=== PATIENT | male | born 1990 | race Caucasian/White ===

== ENCOUNTER 2025-05-14 19:21 | Observation (INO) | payer OTHER, SELFPAY ==
[2025-05-14 13:28] VITALS: BP 166/112
[2025-05-14 13:47] LABS: Hematocrit 44.6 % (39.0-52.0); Hemoglobin 16.1 g/dL (13.0-18.0); Mean Corp Hgb Conc. 36.1 g/dL (33.0-37.0); Mean Corpuscular Volume 81.7 fL (80.0-94.0); Nucleated Red Blood Cells % 0 % (-); Platelet Count 170 10^3/uL (130-400); Red Cell Dist. Width 12.9 % (11.5-14.5)
[2025-05-14 13:53] LABS: Urine Character Clear (Clear)
[2025-05-14 13:54] LABS: Urine Red Blood Cell 0-2 /HPF (0-2); Urine Squamous Cell 0-2 /LPF (Few); Urine White Cell 0-2 /HPF (0-5)
[2025-05-14 14:05] LABS: ALT (SGPT) 28 U/L (0-50); AST (SGOT) 22 U/L (17-59); Albumin 5.0 g/dl (3.5-5.0); Alkaline Phosphatase 60 U/L (38-126); Blood Urea Nitrogen 11 mg/dl (9-20); Calcium 9.6 mg/dl (8.4-10.2); Carbon Dioxide 26 mmol/L (22-30); Chloride 101 mmol/L (98-107); Glucose 96 mg/dl (70-99); Potassium 4.5 mmol/L (3.5-5.1); Sodium 138 mmol/L (135-145); Total Protein 7.8 g/dl (6.3-8.2); eGFR > 60.00
--- NOTE | 2025-05-14 16:23 | ED.GENMED ---
History of Present Illness
General
Chief Complaint: Flank Pain
Source: patient and spouse
Time Seen by Provider: 05/14/25 15:47
History of Present Illness
History of Present Illness:
This patient is a 34-year-old male who presents emergency department complaints of pain is started approximately 2 PM yesterday, described as gradual in onset, but constant, and worse with movement as opposed to laying still. He denies associated
chills but thinks he may have a fever here. He denies vomiting but notes nausea and loss of appetite. He denies chest pain, shortness of breath, pain with urination, hematuria, urgency, frequency. He does note that he thinks he is urinating less
than usual. The pain is located across his lower abdomen but then sometimes will radiate to the right flank area. Patient has never had this before.
Patient went to an urgent care before arriving here, had labs, urine, and x-ray was referred to the ER given concern on the part of the provider for kidney stones.
Past History
Past History
ED Past Medical History: None
ED Past Surgical History: None
Social History
Tobacco: Non-smoker
Drug: None
Personal:
Living: with family
Employment: Employed
Phy Exam
Physical Exam
Physical Exam:
GENERAL: Alert , appears mildly uncomfortable
EYE: pupils equal and reactive
NECK: Supple, no significant adenopathy.
ENT: o/p clr, mmm.
CARDIAC: Regular rate and rhythm .
LUNGS: Clear breath sounds bilaterally, no acute respiratory distress, no wheezes/rales/rhonchi
ABDOMEN: Soft, diffuse lower abdominal tenderness, no r/g, no cvat
NEUROLOGICAL: Alert and oriented, no focal neuro deficits
SKIN: Warm and dry, skin intact.
MUSCULOSKELETAL: No edema, well perfused.
PSYCH: Normal and appropriate interaction.
Course
Orders/Labs/Results
Orders:
Orders
05/14/25 13:38
Urinalysis Reflex To Culture Urgent
Date Specimen was Collected: 05/14/25
Time Specimen was Collected: 13:31
Urine Microscopic Reflex Cult Urgent
05/14/25 13:39
Complete Blood Count/With Diff Urgent
Comprehensive Metabolic Panel Urgent
05/14/25 16:23
CT Abd/Pel (IV only)-DH only Urgent
Comment:
Reason For Exam: lower abd pain
Morphine Sulfate 4 mg IV NOW STA
05/14/25 17:25
Acetaminophen [Tylenol] 1,000 mg .ROUTE .STK-MED ONE
05/14/25 17:27
Acetaminophen [Tylenol] 1,000 mg PO NOW STA
05/14/25 17:53
Morphine Sulfate 4 mg .ROUTE .STK-MED ONE
05/14/25 17:55
Morphine Sulfate 4 mg IV NOW STA
05/14/25 18:11
0.9% Sodium Chloride 1000 ml [Nss] 1,000 ml IV BOLUS
LevoFLOXacin 500 MG/100 ML [Levaquin] 500 mg in 100 ml IV NOW
MetroNIDAZOLE 500 MG/100 ML [Flagyl 500 mg] 100 ml IV NOW
Abnormal Lab Results
05/14/25 05/14/25
13:38 13:39
Absolute Neuts (auto) 8.3 H 10^3/uL
(1.4-6.5)
Absolute Lymphs (auto) 1.0 L 10^3/uL
(1.2-3.4)
Absolute Monos (auto) 0.8 H 10^3/uL
(0.1-0.6)
Neutrophils % 81.3 H %
(42.2-75.2)
Lymphocytes % 9.8 L %
(20.5-51.1)
Total Bilirubin 2.2 H mg/dl
(0.2-1.3)
Urine Ketones 3+ A
(Negative)
Urine Bacteria (Reflex) Few A
(Negative)
Urine Albumin (Reflex) 1+ A
(Neg - Trace)
05/14/25 13:39
05/14/25 13:39
Vital Signs
Initial and Last Documented VS:
Initial Vital Signs
Temp Pulse Resp BP Pulse Ox
97.9 F 100 16 166/112 98
05/14/25 13:28 05/14/25 13:28 05/14/25 13:28 05/14/25 13:28 05/14/25 13:28
Last Documented Vital Signs
Temp Pulse Resp BP Pulse Ox
101.9 F H 100 16 166/112 98
05/14/25 17:22 05/14/25 13:28 05/14/25 13:28 05/14/25 13:28 05/14/25 16:23
*Pulse Oximetry
SaO2: 98
Oxygen Mode of Delivery: Room air
Patient hypoxic: no
*Critical Care Note
Total Time (30-74mins, 75-104mins- exclusive of procedures): Not Applicable
Update Note
Update Note:
Patient presents to the Emergency Department with _abdominal pain
Number and Complexity of Problems Addressed at the Encounter
� Chronic conditions affecting care:
� Acute Exacerbation and/or Progression of Chronic Illness:
� Differential Diagnosis includes: But not limited to diverticulitis, appendicitis, bowel obstruction, kidney stone, urinary retention, etc. etc.
Amount and/or Complexity of Data to be Reviewed and Analyzed
� I performed an independent evaluation of and my interpretation is:
EKG:
CT:Findings of acute diverticulitis along the proximal sigmoid colon. There is no evidence of pericolonic abscess or perforation. There is small volume free fluid in the pelvis which is likely reactive.
Xrays:
Laboratory Studies: Ketonuria, generally otherwise unremarkable
Other:
� Review of other/old records reveals:
� Clinical information was obtained by an independent historian: who is bedside
� Prescriptions/Medications Considered but not given:
� Further testing considered but not performed:
Risk of Complications and/or Morbidity or Mortality of Patient Management
� Social determinants of health affecting care:
� Discussion with other providers (PCP, Hospitalists, Consultants, etc):
� Escalation of care including admission/observation vs risk of discharge considered: Patient's pain has been requiring IV meds here, and now has developed a fever. Although no abscess or perforation noted, I am impressed with
patient's level of pain and recommend overnight observation with IV antibiotics. Hospitalist made aware
ED Attending Note
-
Portions of this chart may have been created with voice recognition software.� Occasional wrong word or��sound alike� substitutions may have occurred due to the inherent limitations of voice recognition software.
Discharge Plan
Departure
Patient Disposition: Admit
Date of Disposition: 05/14/25
Time of Disposition: 18:24
Admit to: Med/Surg
Presentation/result/management discussed w/ accepting MD/DO: Hospitalist
Condition: Good
Discharge Problem:
Diverticulitis
Prescriptions:
No Action
ibuprofen [Advil] 200 mg Tablet
600 mg PO Q6HPRN PRN (Reason: mild pain)
Referrals:
NONE,* [Family Provider, Internal Medicine]
Interventions
Interventions:
*Risk Screen - Suicide Last Done: 05/14/25 13:28
*Neglect/Abuse Screening Last Done: 05/14/25 13:28
EH-Cjydrh-Kwswomrvxh Assessment Last Done: 05/14/25 15:45
ED-Male Genitourinary Assessment Last Done: 05/14/25 15:45
Discharge Date and Time
Print Language: SWISS
[2025-05-14] MEDS: MORPHINE SULFATE 4 MG IV ×2 (16:39→17:56)
[2025-05-14] MEDS: TYLENOL 1000 MG PO (17:27)
[2025-05-14] MEDS: LEVAQUIN 100 IV (18:19)
[2025-05-14] MEDS: NSS 1000 IV ×2 (18:21→20:29)
[2025-05-14] MEDS: FLAGYL 500 MG 100 IV (18:21)
--- NOTE | 2025-05-14 18:34 | HPS.HSE ---
Family Physician
-
Family Physician: * NONE
Chief Complaint
-
abdominal pain
History of Present Illness
Patient is a 34-year-old male with no significant past medical history who presented to [facility] ED for evaluation of abdominal pain. Patient reports that he started with lower abdominal pain yesterday afternoon that gradually intensified. He reports
associated mild nausea and decreased appetite. He also reports diarrhea yesterday. He reports pain was worse with movement and improved when lying still. He denies any fever, chills, cough, chest pain, vomiting, constipation or urinary symptoms.
Medical History
Past Medical History
Past Medical History: Reports None
Past Surgical History: Reports None
Social History
Tobacco: Non-smoker
Alcohol: Occasional
Drug: Marijuana (occasionally will use edibles )
Personal:
Living: With Family
Employment: Employed
Family History
Family History: Other (Father: CAD; Sister: CAD )
Allergies / Home Medications
Allergies reflects when Allergies were last updated in [facility].
Home Medications with original date entered in [facility]
Allergy/Medication List:
Allergies
Allergy/AdvReac Type Severity Reaction Status Date / Time
No Known Allergies Allergy Verified 05/14/25 13:30
Home Medications
ibuprofen 200 mg tablet (Advil) 600 mg PO Q6HPRN PRN mild pain 05/14/25
Review of Systems
-
History Source: Patient
Constitutional: Reports No Symptoms
EENT: Reports No Symptoms
Respiratory: Reports No Symptoms
Cardiac: Reports No Symptoms
Abdomen/GI: Reports Abdominal Pain, Nausea, Diarrhea and Anorexia
: Reports No Symptoms
Musculoskeletal: Reports No Symptoms
Skin: Reports No Symptoms
Neurological: Reports No Symptoms
Endocrine: Reports No Symptoms
Hematologic/Lymphatic: Reports No Symptoms
Psych: Reports No Symptoms
Physical Exam
Vital Signs
Vital Signs
Temp Pulse Resp BP Pulse Ox
101.9 F H 100 16 166/112 98
05/14/25 17:22 05/14/25 13:28 05/14/25 13:28 05/14/25 13:28 05/14/25 16:23
Physical Exam
General: Well Developed, Well Nourished, No Apparent Distress and Obese
HEENT: NormoCephalic, Moist mucous membranes and Atraumatic
Respiratory: Clear and Non Labored Respirations
Cardiac: S1/S2 and Regular Rhythm
GI: Soft and Tender
Rectal: Deferred by Provider
Musculoskeletal: No Clubbing, No Cyanosis and No Edema
Skin: Warm and IV/Catheter Site
Neuro: Awake, AO x 3 and Nonfocal/grossly intact
Psych: Calm and Intact Judgment/Insight
Laboratory Results
-
05/14/25 13:39
05/14/25 13:39
Laboratory Results
Total Bilirubin 2.2 mg/dl (0.2-1.3) H 05/14/25 13:39
AST 22 U/L (17-59) 05/14/25 13:39
ALT 28 U/L (0-50) 05/14/25 13:39
Alkaline Phosphatase 60 U/L (38-126) 05/14/25 13:39
Data Reviewed
-
CT Scan: Report Reviewed by me (Abd/Pel: Findings of acute diverticulitis along the proximal sigmoid colon. There is no evidence of pericolonic abscess or perforation. There is small volume free fluid in the pelvis which is likely reactive.)
Lab Data: Labs Reviewed by me
Impression/Plan
-
IMPRESSION/PLAN:
#diverticulitis
Abd/Pel CT: Findings of acute diverticulitis along the proximal sigmoid colon. There is no evidence of pericolonic abscess or perforation. There is small volume free fluid in the pelvis which is likely reactive.
- Admit to med/surg
- NPO advance to clears in AM
- IV Flagyl and Ceftriaxone
- pain regimen
- antiemetics
Code status: full code
DV prophylaxis: lovenox sq
[2025-05-14 19:03] VITALS: BP 132/69
--- NOTE | 2025-05-14 19:06 | W.PN.UPDATE ---
Update Note
Progress Note Update
Patient seen and conjunction with SHARLENE. I agree with findings on history and physical. I concur with assessment and plan.
Briefly, this is a 34-year-old with no known significant past medical history who presents to the emergency department with left-sided lower abdominal and flank pain that started at around 2 PM yesterday. Patient reported that he was not doing
anything in particular when he noticed some nausea and an episode of watery diarrhea then developed abdominal pain. Was unable to tolerate p.o. since 4 PM yesterday. He reported having chills at home but no measured fevers. He denied any
vomiting. He continued to have nausea and lack of p.o. intake with worsening left lower quadrant and flank pain. He denies any urinary symptoms. He denies any recent travels, sick contacts, antibiotic use. He denies any history of kidney stones.
He denies any history of any surgeries.
In the emergency department patient was febrile to one 1.9, blood pressure was in the 160s over 100 with a pulse rate of 100 and was satting 98% on room air. His CBC was completely normal. Electrolytes BUN/creatinine were normal. Total bilirubin
was elevated at 2.2 however the rest of the LFTs were normal. UA was unremarkable. CT of the abdomen pelvis shows acute diverticulitis along the proximal sigmoid colon. No evidence of pericolonic abscess or perforation. There is a small volume
free fluid in the pelvis which is thought to be reactive.
Assessment and plan
1 acute diverticulitis�noncomplicated acute diverticulitis with inability to tolerate p.o. and fevers. Patient is otherwise nontoxic-appearing
� Admit to MedSurg observation
� N.p.o. for now, advance to clear diet in a.m.
� Continue IV fluids
� Continue pain control and antiemetics
� Agree with IV ceftriaxone and Flagyl
DVT prophylaxis -Lovenox subcu
Full code
[2025-05-14 20:23] VITALS: BP 147/90
--- NOTE | 2025-05-14 20:23 | PTCARENOTE ---
Pt arrived onto floor @2022. Pt AAOx3 and able to ambulate into room without assistance. Pt with no complaints of SOB at this time. Pt oriented to room and call hernandes; will continue to monitor
[2025-05-14 20:25] VITALS: BMI 34.2
[2025-05-14] MEDS: MORPHINE SULFATE 2 MG IV (20:25)
[2025-05-14] MEDS: ROCEPHIN 1000 MG IV (20:33)
[2025-05-14] MEDS: STERILE WATER FOR INJECTION 10 ML IV (20:33)
[2025-05-14 23:42] VITALS: BP 110/66
[2025-05-15] MEDS: FLAGYL 500 MG 100 IV ×3 (06:12→21:32)
[2025-05-15] MEDS: NSS 1000 IV (06:13)
[2025-05-15 07:00] VITALS: BP 137/84
--- NOTE | 2025-05-15 10:44 | W.PN.HOSP.TC ---
Today's Communication/Plan
-
clears
IV Ceftriaxone/Flagyl
Assessment / Plan
Assessment / Plan
CT A/P
IMPRESSION:
Findings of acute diverticulitis along the proximal sigmoid colon. There is no evidence of pericolonic abscess or perforation. There is small volume free fluid in the pelvis which is likely reactive.
Acute Diverticulitis
Sepsis 2/2 above
� Admitted to [facility] observation
� CLD
� Continue IV fluids
� Continue pain control and antiemetics
� Agree with IV ceftriaxone and Flagyl (increase to Q8H)
- patient will need referral to GI post discharge for colonoscopy
DVT prophylaxis -Lovenox subcu
Full code
Anticipated Discharge: 24 - 48 hours
Subjective/Interval History
-
Date of Service: May 15, 2025
feeling slightly better
continues to have pain
no fevers since ER
no hx diverticulitis, never had colonoscopy before
Objective Data
-
Vital Signs:
Vital Signs
Temp Pulse Resp BP Pulse Ox
99.9 F 92 16 137/84 98
05/15/25 07:00 05/15/25 07:00 05/15/25 07:00 05/15/25 07:00 05/15/25 08:00
I&O
05/14/25 05/15/25 05/16/25
06:59 06:59 06:59
Output Total 1000 / 1000
Balance -1000 / -1000
Review of Systems
-
History Source: Patient
All other systems: Reviewed and negative
Physical Exam
-
General: No Apparent Distress
HEENT: PERRLA
Respiratory: Clear to Auscultation; Negative Wheezes
Cardiac: Regular Rhythm and S1/S2
GI: Soft and Nontender
Musculoskeletal: No Edema
Skin: Warm and Dry; Negative Rash
Neuro: AO x 3
Psych: Calm
Data Reviewed
-
Diagnostic Radiology: Report Reviewed by me
Labs: Labs Reviewed by me
--- NOTE | 2025-05-15 14:47 | CM ---
Addendum entered by Mago Guerrero 05/15/25 14:52:
Patient admitted obs. OOBS form verbally reviewed, copy provided, copy on chart
Original Note:
Patient seen bedside, initial assessment completed. Patient is a 34-year-old male with no significant past medical history who presented to [facility] ED for evaluation of abdominal pain. IV abx.
Patient resides w/ spouse and her 2 kids in a 2[address], 2 steps to enter from the outside. Patient is independent in all areas. No therapy hx. No equipment.
Address, points of contact and insurance verified
PCP: Patient does not have a PCP at this time
Pharmacy: [facility]- [place]
Patient receptive residency clinic. Info provided
Plan: Home, no needs when stable
[2025-05-15 15:00] VITALS: BP 126/76
[2025-05-15] MEDS: MORPHINE SULFATE 2 MG IV ×2 (15:58→19:58)
[2025-05-15] MEDS: STERILE WATER FOR INJECTION 10 ML IV (21:33)
[2025-05-15] MEDS: ROCEPHIN 1000 MG IV (21:33)
[2025-05-15 23:22] VITALS: BP 125/71
[2025-05-16] MEDS: FLAGYL 500 MG 100 IV ×3 (05:06→21:21)
[2025-05-16 08:00] VITALS: BP 122/78
[2025-05-16 08:07] LABS: Hematocrit 38.0 % (39.0-52.0); Hemoglobin 13.7 g/dL (13.0-18.0); Mean Corp Hgb Conc. 36.1 g/dL (33.0-37.0); Mean Corpuscular Volume 82.4 fL (80.0-94.0); Nucleated Red Blood Cells % 0 % (-); Platelet Count 149 10^3/uL (130-400); Red Cell Dist. Width 12.5 % (11.5-14.5)
[2025-05-16 08:34] LABS: Blood Urea Nitrogen 8 mg/dl (9-20); Calcium 8.5 mg/dl (8.4-10.2); Carbon Dioxide 25 mmol/L (22-30); Chloride 104 mmol/L (98-107); Estimated Creatinine Clearance > 125 ml/min; Glucose 89 mg/dl (70-99); Magnesium 1.9 mg/dl (1.6-2.3); Potassium 3.8 mmol/L (3.5-5.1); Sodium 138 mmol/L (135-145); eGFR > 60.00
--- NOTE | 2025-05-16 11:47 | CM ---
Addendum entered by Mago Guerrero 05/16/25 15:13:
Update from nurse- per hospitalist, will keep until tomorrow
Original Note:
Per nurse, patient will likely d/c home today
No CM needs at this time
Plan: Home, no needs
--- NOTE | 2025-05-16 12:24 | W.PN.HOSP.TC ---
Today's Communication/Plan
-
see plan
Assessment / Plan
Assessment / Plan
CT A/P
IMPRESSION:
Findings of acute diverticulitis along the proximal sigmoid colon. There is no evidence of pericolonic abscess or perforation. There is small volume free fluid in the pelvis which is likely reactive.
Acute Diverticulitis
Sepsis 2/2 above
� Admitted to [facility] observation
- s/p IVF
� Continue pain control and antiemetics
� continue IV ceftriaxone and Flagyl (increase to Q8H) (day 11/15)
-possible DC today if tolerates LRD
- patient will need referral to GI post discharge for colonoscopy
DVT prophylaxis -Lovenox subcu
Full code
Anticipated Discharge: Within 24 hours
Subjective/Interval History
-
Date of Service: May 16, 2025
overall feeling better
has some bloating
wants to try regular diet
no nausea/vomiting, no pain meds since last night
Objective Data
-
Labs:
Laboratory Results
05/16/25
07:24
WBC 4.8
Hgb 13.7
Hct 38.0 L
Plt Count 149
Sodium 138
Potassium 3.8
Chloride 104
Carbon Dioxide 25
BUN 8 L
Creatinine 0.7
Glucose 89
Calcium 8.5
Vital Signs:
Vital Signs
Temp Pulse Resp BP Pulse Ox
98.1 F 73 16 122/78 97
05/16/25 08:00 05/16/25 08:00 05/16/25 08:00 05/16/25 08:00 05/16/25 08:00
I&O
05/15/25 05/16/25 05/17/25
06:59 06:59 06:59
Intake Total 1120 / 1120
Output Total 1000 / 999
Balance -1000 / -1000 1119
Review of Systems
-
History Source: Patient
All other systems: Reviewed and negative
Physical Exam
-
General: No Apparent Distress
HEENT: PERRLA
Respiratory: Clear to Auscultation; Negative Wheezes
Cardiac: Regular Rhythm and S1/S2
GI: Soft and Nontender
Musculoskeletal: No Edema
Skin: Warm and Dry; Negative Rash
Neuro: AO x 3
Psych: Calm
Data Reviewed
-
Diagnostic Radiology: Report Reviewed by me
Labs: Labs Reviewed by me
[2025-05-16 16:00] VITALS: BP 111/59
[2025-05-16] MEDS: STERILE WATER FOR INJECTION 10 ML IV (21:21)
[2025-05-16] MEDS: ROCEPHIN 1000 MG IV (21:21)
[2025-05-16 23:01] VITALS: BP 112/69
[2025-05-17] MEDS: FLAGYL 500 MG 100 IV (05:28)
[2025-05-17 07:00] VITALS: BP 118/71
--- NOTE | 2025-05-17 09:25 | W.PN.HOSP.TC ---
Today's Communication/Plan
-
OK for DC today
Assessment / Plan
Assessment / Plan
CT A/P
IMPRESSION:
Findings of acute diverticulitis along the proximal sigmoid colon. There is no evidence of pericolonic abscess or perforation. There is small volume free fluid in the pelvis which is likely reactive.
Acute Diverticulitis
Sepsis 2/2 above
� Admitted to [facility] observation
- s/p IVF
� Continue pain control and antiemetics
� day 3 antibiotics ceftriaxone/flagyl - DC on Cefdinir/Flagyl to complete 7 day course
- OK for DC today
- patient will need referral to GI post discharge for colonoscopy
DVT prophylaxis -Lovenox subcu
Full code
Anticipated Discharge: Today
Subjective/Interval History
-
Date of Service: May 17, 2025
feeling better
some mild abdominal discomfort
feels ready to go home
Objective Data
-
Vital Signs:
Vital Signs
Temp Pulse Resp BP Pulse Ox
97.9 F 66 16 118/71 95
05/17/25 07:00 05/17/25 07:00 05/17/25 07:00 05/17/25 07:00 05/17/25 07:00
I&O
05/16/25 05/17/25 05/18/25
06:59 06:59 06:59
Intake Total 1120 / 1120 1700 / 1700
Balance 1120 / 1120 1700 / 1700
Review of Systems
-
History Source: Patient
All other systems: Reviewed and negative
Physical Exam
-
General: No Apparent Distress
HEENT: PERRLA
Respiratory: Clear to Auscultation; Negative Wheezes
Cardiac: Regular Rhythm and S1/S2
GI: Soft and Other (mild discomfort lower abdomen, no rebound or guarding )
Musculoskeletal: No Edema
Skin: Warm and Dry; Negative Rash
Neuro: AO x 3
Psych: Calm
Data Reviewed
-
Diagnostic Radiology: Report Reviewed by me
Labs: Labs Reviewed by me
--- NOTE | 2025-05-17 09:42 | W.DS.TRANS ---
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
-
Discharge Instructions:
Discharge Diagnosis/Procedures Acute Diverticulitis
Diet Low Residue
Additional Diets Low residue diet x 1 week then advance slowy
Activity As tolerated
Driving Restrictions As prior to admission
Bathing Restrictions None
Instructions: Diverticulitis - Discharge instructions
Low-fiber diet
Stand-Alone Forms: Return to Work
Changes to Home Medications: Yes
Discharge Medications:
DC Medications w/original date entered in [email or web address]
cefdinir 300 mg capsule 300 mg PO Q12H #8 caps 05/17/25
metronidazole 500 mg tablet 500 mg PO Q8H #14 tabs 05/17/25
Home Medication Changes
addition of Cefdinir and Flagyl
Pending Results: No
--- NOTE | 2025-05-17 12:15 | W.DCSUMMARY ---
Discharge Summary
Discharge Data
Date of Admission: 05/14/25
Date of Discharge: 05/17/25
-
Pending Results: No
Hospital Course
Discharging Physician : Dr. Irina Segura
Disposition : Home
Principal Discharge diagnosis : Acute Diverticulitis
Hospital Course :
Mr. Hakan Licona is a 34 yo man without significant past medical history who presents to the ER with abdominal pain.
In the emergency department patient was febrile to one 101.9, blood pressure was in the 160s over 100 with a pulse rate of 100 and was satting 98% on room air. His CBC was normal. Electrolytes BUN/creatinine were normal. Total bilirubin was
elevated at 2.2 however the rest of the LFTs were normal. UA was unremarkable. CT of the abdomen pelvis shows acute diverticulitis along the proximal sigmoid colon. No evidence of pericolonic abscess or perforation.
Patient was admitted for treatment of acute uncomplicated diverticulitis. He received IV Ceftriaxone/ IV Flagyl in the hospital with improvement in symptoms. He has remained afebrile and is tolerating a low residue diet prior to discharge.
Patient completed 3 days of IV antibiotics in-house and is discharged with 4 additional days Cefdinir/Flagyl to complete a 7 day course.
He is referred to Gastroenterology on discharge for colonoscopy.
Time spent on discharge was 35 minutes.
Important imaging findings :
CT A/P 05/14/25
IMPRESSION:
Findings of acute diverticulitis along the proximal sigmoid colon. There is no evidence of pericolonic abscess or perforation. There is small volume free fluid in the pelvis which is likely reactive.
Procedure findings :
Discharge Plan
-
Patient Disposition: Home (Routine Discharge)
Discharge Diagnosis/Procedures: Acute Diverticulitis
Diet: Low Residue
Additional Diets: Low residue diet x 1 week then advance slowy
Activity: As tolerated
Driving Restrictions: As prior to admission
Bathing Restrictions: None
Instructions: Diverticulitis - Discharge instructions, Low-fiber diet
Stand Alone Forms: Return to Work
Referrals:
Gela Keys MD [Active, Gastroenterology] - in six weeks
Referral Note: follow up for a colonoscopy appointment
NONE,* [Family Provider, Internal Medicine] - in less than 1 week
Additional Discharge Medication Instructions: Please follow up with your PCP within next week.
Make appointment with GI clinic to schedule a colonoscopy (in 6 weeks when inflammation completely resolved)
You are 4 more days of antibiotics: Cefdinir (next dose this evening) and Metronidazole. Avoid any alcohol while taking antibiotics.
Prescriptions:
New
cefdinir 300 mg capsule
300 mg PO Q12H Qty: 8 0RF
metronidazole 500 mg tablet
500 mg PO Q8H Qty: 14 0RF
Discontinued
ibuprofen [Advil] 200 mg Tablet
600 mg PO Q6HPRN PRN (Reason: mild pain)
Discharge Orders:
Discharge Patient (As Directed); Ordered 05/17/25
Ordered By: Irina Segura
Discharge Date and Time
Discharge Date/Time: 05/17/25 10:37
Print Language: [id number]
== END 2025-05-17 10:37 | disposition home or self-care (01) ==
LOC: 4 WEST ACU 19:21
PROVIDERS: ADMITTING PHYSICIAN Internal Medicine; ATTENDING PHYSICIAN Student in an Organized Health Care Education/Training Program; EMERGENCY PHYSICIAN Emergency Medicine
DX: A41.9 Sepsis, unspecified organism (principal); K57.32 Diverticulitis of large intestine without perforation or abscess without bleeding; R10.30 Lower abdominal pain, unspecified; R11.0 Nausea; F12.90 Cannabis use, unspecified, uncomplicated; Z82.49 Family history of ischemic heart disease and other diseases of the circulatory system
CPT/HCPCS: 74177; 80048; 80053; 81003; 81015; 83735; 85025; 96361; 96365; 96367; 96375; 96376; 99285; G0378; Q9967

== ENCOUNTER 2025-08-28 06:20 | Day surgery (SDC) | payer OTHER, SELFPAY | END 2025-08-28 13:31 | disposition home or self-care (01) | LOC: GI 06:20 | PROVIDERS: ATTENDING PHYSICIAN Internal Medicine | DX: Z12.11 Encounter for screening for malignant neoplasm of colon (principal); R93.3 Abnormal findings on diagnostic imaging of other parts of digestive tract; K57.32 Diverticulitis of large intestine without perforation or abscess without bleeding; K57.30 Diverticulosis of large intestine without perforation or abscess without bleeding; K63.5 Polyp of colon | CPT/HCPCS: 45380; 88305 ==